=== PATIENT | female | born 1975 | race Caucasian/White ===

== ENCOUNTER 2017-01-11 16:58 | Emergency (ER) | payer MEDICAID, MEDICARE ==
[~2017-01-11] VITALS: Ht 152.4 cm; Wt 80.0 kg
[~2017-01-11 16:58] MED LIST: FLUT16SP24 NS; HYDR-906 PO; IBUP-1542 PO; LORA-407 PO
[2017-01-11 17:02] VITALS: Ht 152.4 cm; Wt 80.0 kg
== END 2017-01-11 20:54 | disposition left against medical advice (07) ==
LOC: FTE 16:58
DX: Z53.21 Procedure and treatment not carried out due to patient leaving prior to being seen by health care provider (principal)

== ENCOUNTER → 2017-05-27 | Outpatient (CLI) | payer MEDICARE, OTHER ==
[2017-05-27 11:45] LABS: ADD SCAN DIFF NO
[2017-05-27 11:48] LABS: BASOPHIL # 0.1 10^3/ul (0.0-0.1); BASOPHILS % 1.1 % (0.0-2.0); EOSINOPHILS # 0.2 10^3/ul (0.0-0.5); EOSINOPHILS % 2.9 % (0.0-7.0); HEMATOCRIT 31.6 % (37.0-47.0); LYMPHOCYTES # 2.5 10^3/ul (0.8-2.9); LYMPHOCYTES % 31.1 % (15.0-51.0); MEAN CORPUSCULAR HEMOGLOBIN 22.7 pg (29.0-33.0); MEAN CORPUSCULAR HGB CONC 31.6 g/dl (32.0-37.0); MEAN CORPUSCULAR VOLUME 71.7 fl (82.0-101.0); MEAN PLATELET VOLUME 9.9 fl (7.4-10.4); MONOCYTE # 0.6 10^3/ul (0.3-0.9); MONOCYTES % 7.9 % (0.0-11.0); NEUTROPHIL # 4.5 10^3/ul (1.6-7.5); NEUTROPHILS % 56.7 % (39.0-77.0); PLATELET COUNT 369 10^3/UL (140-415); RED BLOOD COUNT 4.41 10^6/ul (4.20-5.40); RED CELL DISTRIBUTION WIDTH 16.2 % (11.5-14.5)
--- NOTE | 2017-05-27 15:44 | RADRPT ---
PROCEDURE: Nuclear medicine triple phase bone scan CLINICAL INDICATION: Right TKA. Knee prosthesis. Pain. Swelling. TECHNIQUE: 23.6 mCi of technetium-99m MDP was administered intravenously. Planar imaging of the b ilateral knees was performed in the anterior and posterior views. Triple phase imaging was performe d during the vascular flow phase, blood pool phase, and the delayed phase of enhancement. Spot imag es were obtained as well. Images were reviewed on the high resolution PACS workstation. COMPARISON: None available FINDINGS: There is symmetric and normal vascular flow to the knees bilaterally. There is symmetric and normal blood pool phase activity throughout the knees bilaterally. There is mild increased delayed phase activity right knee prosthesis, within normal limits. Mild de generative activity around the left knee is seen as well. No focus of intense abnormal increased me tabolic activity is identified. There is no evidence for osteomyelitis or fracture or prosthetic lo osening. IMPRESSION: 1. Negative triple phase bone scan. 2. No evidence for prosthetic loosening. 3. No evidence for infection. RPTAT: HMJB .Beny Nicole MD, MD Date Time Electronically viewed and signed by .Beny Nicole MD, on 05/27/2017 15:44 .B/
== END | disposition home or self-care (01) ==
LOC: NUC 11:11
PROVIDERS: ATTEND Physician Assistant
DX: Z96.651 Presence of right artificial knee joint (principal)
CPT/HCPCS: 78315; 85025; 85651; 86140; A9503

== ENCOUNTER 2018-01-13 13:33 | Emergency (ER) | END 2018-01-13 18:19 | disposition home or self-care (01) ==

== ENCOUNTER 2018-04-21 14:19 | Emergency (ER) | END 2018-04-21 15:34 | disposition home or self-care (01) ==

== ENCOUNTER 2019-03-17 14:45 | Emergency (ER) | payer MEDICARE, OTHER ==
[~2019-03-17] VITALS: Ht 152.4 cm; Wt 82.6 kg
[~2019-03-17 14:45] MED LIST changes: +HYDR-4011 PO; -HYDR-906 PO; +IBUP-1561 PO; +NAPR-985 PO
[2019-03-17 15:10] VITALS: BP 129/93; PULSE 82; RESP 18; Ht 152.4 cm; Wt 82.6 kg
[2019-03-17] MEDS ORDERED: KETOROLAC 60 MG INJ IM STA (17:08)
[2019-03-17] MEDS ORDERED: DEXAMETHASONE 10 MG/ML 1 ML INJ IM ONE (17:30)
--- NOTE | 2019-03-17 18:28 | ERD ---
ER Documentation Chief Complaint Chief Complaint PT HAS CHRONIC RIGHT SHOULDER PAIN 08/27 X 1 YEAR INCREASING PAIN HPI History of Present Illness: 43-year-old female with past history to include asthma coming in today with complaint of right shoulder pain. Patient reports pain is not present for 1 year in which she had trauma and fell on that right shoulder. Patient reports increasing pain in the past month. Patient denies any other associated symptoms. Patient denies any new trauma or injury. At home pharmacological/nonpharmacological treatment for symptoms: denies Denies social concerns; Denies recent foreign travel ROS All systems reviewed and are negative except as per history of present illness. Medications Home Meds Active Scripts Naproxen* (Naprosyn*) 500 Mg Tablet, 500 MG PO BID PRN for PAIN AND/OR INFLAMMATION, #30 TAB Prov:ROBE AQUINO PA-C 04/21/18 Ibuprofen* (Motrin*) 400 Mg Tab, 400 MG PO Q6H PRN for PAIN AND OR ELEVATED TEMP, #30 TAB Prov:BUFFY LOPES PA-C 01/13/18 Hydrocodone/Acetaminophen ([place] 5-325 Tablet) 1 Each Tablet, 1 TAB PO Q6H PRN for PAIN, #7 TAB Prov:TIFFANY GUAMAN DO 08/11/16 Ibuprofen* (Motrin*) 600 Mg Tab, 600 MG PO Q8, #15 TAB Prov:TIFFANY GUAMAN DO 08/11/16 Reported Medications Fluticasone Propionate* (Flonase* Nasal) 16 Gm [place].susp, 16 GM NS HS 08/21/12 Loratadine (Claritin) 10 Mg Tablet, 10 MG PO DAILY 08/21/12 Allergies Allergies: Coded Allergies: Penicillins (Verified Allergy, Unknown, 03/17/19) PMhx/Soc History of Surgery: Yes (gall bladder, left knee) Anesthesia Reaction: No Hx Neurological Disorder: No Hx Respiratory Disorders: No Hx Cardiac Disorders: No Hx Psychiatric Problems: No Hx Miscellaneous Medical Probl: No Hx Alcohol Use: No Hx Substance Use: No Hx Tobacco Use: No FmHx Family History: diabetes Physical Exam Vitals Vital Signs Date Temp Pulse Resp B/P (MAP) Pulse Ox O2 O2 Flow FiO2 Time Delivery Rate 03/17/19 98.6 82 18 129/93 100 15:10 (105) Physical Exam Const: No acute distress Head: Atraumatic Eyes: Normal Conjunctiva ENT: Normal External Ears, Nose and Mouth. Neck: Full range of motion. No meningismus. Resp: Clear to auscultation bilaterally Cardio: Regular rate and rhythm, no murmurs Abd: Soft, non tender, non distended. Normal bowel sounds Skin: No petechiae or rashes Back: No midline or flank tenderness Ext: No cyanosis, or edema. Patient with decreased range of motion of right shoulder, patient able to extend up but with difficulty due to pain Neur: Awake and alert Psych: Normal Mood and Affect Results 24 hrs Current Medications Medications Dose Sig/Brooke Start Time Status Last (Trade) Ordered Route PRN Stop Time Admin Dose Reason Admin Ketorolac 60 mg ONCE STAT 03/17/19 DC Tromethamine IM 17:08 (Toradol) 03/17/19 17:10 10 mg ONCE ONCE 03/17/19 DC Dexamethasone IM 17:30 (Decadron) 03/17/19 17:31 Procedures/MDM ED course includes a thorough examination and history. Medications: Dexamethasone, ketorolac Imaging: Shoulder x-ray Labs: -- Low suspicion for life-threatening medical emergency. Low suspicion for orthopedic emergency department auscultation of the surgical intervention. Otherwise healthy patient presenting with constellation of symptoms likely representing uncomplicated chronic right shoulder pain as characterized by history, physical exam findings . Informed by nursing staff that patient refused all medications and tests. Patient is demanding a MRI despite agreeing with initial plan of care with x-ray and anti-inflammatory medications. initially discussed with patient the inability to do MRIs at this facility in the emergency department for her type of complaint, and patient was initially okay with plan of care. No respiratory distress, otherwise relatively well appearing and nontoxic. Disposition for AGAINST MEDICAL ADVICE. Departure Diagnosis: Primary Impression: Shoulder pain Chronicity: chronic Laterality: right Qualified Codes: M25.511 - Pain in right shoulder; G89.29 - Other chronic pain Condition: Stable YUKO MARQUEZ NP Mar 17, 2019 18:28
== END 2019-03-17 17:42 | disposition left against medical advice (07) ==
LOC: FTE 14:45
DX: M25.511 Pain in right shoulder (principal); J45.909 Unspecified asthma, uncomplicated
CPT/HCPCS: J1100; J1885